=== PATIENT | male | born 1965 | race Caucasian/White ===

== ENCOUNTER 2017-11-09 16:17 | Emergency (ER) | payer OTHER | END 2017-11-09 18:11 | disposition home or self-care (01) | LOC: E/R 18:11 → FTE 16:17 | DX: L02.414 Cutaneous abscess of left upper limb (principal); L02.413 Cutaneous abscess of right upper limb | CPT/HCPCS: 99284; Z7502 ==

== ENCOUNTER 2019-05-02 11:59 | Observation (INO) | payer OTHER ==
[2019-05-02 13:52] LABS: ABNORMAL IP MESSAGE 1; HEMATOCRIT 44.1 % (42.0-52.0); HEMOGLOBIN 14.6 g/dl (14.0-18.0); MEAN CORPUSCULAR HEMOGLOBIN 29.2 pg (29.0-33.0); MEAN CORPUSCULAR HGB CONC 33.1 g/dl (32.0-37.0); MEAN CORPUSCULAR VOLUME 88.2 fl (82.0-101.0); MEAN PLATELET VOLUME 12.2 fl (7.4-10.4); PLATELET COUNT 254 10^3/UL (140-415); POSITIVE DIFF @See below; RED CELL DISTRIBUTION WIDTH 13.3 % (11.5-14.5)
[2019-05-02 13:52] LABS: WHITE BLOOD COUNT 31.7 10^3/ul (4.8-10.8)
[2019-05-02 13:53] LABS: ADD MAN DIFF? YES; PATH REVIEW? YES
[2019-05-02] MEDS: VANCOMYCIN 1 GM (PMX) 250 ML IVPB (14:01)
[2019-05-02 14:09] LABS: ALANINE AMINOTRANSFERASE 23 IU/L (13-69); ALBUMIN/GLOBULIN RATIO 1.21; ALKALINE PHOSPHATASE 91 IU/L (42-121); ANION GAP 10 (5-13); ASPARTATE AMINO TRANSFERASE 21 IU/L (15-46); BILIRUBIN,INDIRECT 0.5 mg/dl (0-1.1); BILIRUBIN,TOTAL 0.5 mg/dl (0.2-1.3); BLOOD UREA NITROGEN 21 mg/dl (7-20); CALCIUM 9.3 mg/dl (8.4-10.2); CARBON DIOXIDE 28 mmol/L (21-31); CHLORIDE 101 mmol/L (97-110); CREATININE 1.22 mg/dl (0.61-1.24); Estimated GFR > 60 mL/min (>60); GLUCOSE 121 mg/dl (70-220); POTASSIUM 3.6 mmol/L (3.5-5.1); SODIUM 139 mmol/L (135-144); TOTAL PROTEIN 7.3 g/dl (6.1-8.1)
[2019-05-02 14:26] LABS: ANISOCYTOSIS 1+ (0-0); BAND NEUTROPHILS #M 4.1 10^3/ul (0.0-0.6); BAND NEUTROPHILS % (M) 13 % (0-4); LYMPHOCYTES #M 0.3 10^3/ul (0.8-2.9); LYMPHOCYTES % (M) 1 % (15-51); MONOCYTE #M 1.9 10^3/ul (0.3-0.9); MONOCYTES % (M) 6 % (0-11); PLATELET ESTIMATE NORMAL; SEG NEUT #M 26.7 10^3/ul (1.6-7.5); SEGMENTED NEUTROPHILS (M) % 80 % (39-77)
[2019-05-02] MEDS ORDERED: ONDANSETRON 4 MG INJ IV (15:30)
[2019-05-02] MEDS: LIDOCAINE 1% (MPF) 5 ML VIAL SC (15:30)
[2019-05-02] MEDS ORDERED: VANCOMYCIN IV PER PHARMACY XX (15:30)
[2019-05-02] MEDS ORDERED: ZOLPIDEM 5 MG TAB PO (15:30)
[2019-05-02] MEDS ORDERED: ACETAMINOPHEN 325 MG TAB PO (15:30)
[2019-05-02] MEDS: ENOXAPARIN 40 MG/0.4 ML SYG SC (17:57)
[2019-05-02] MEDS: VANCOMYCIN 750 MG (PMX) 250 ML IVPB (17:57)
[2019-05-02] MEDS: ACETAMINOPHEN 500 MG TAB PO (17:58)
[2019-05-03] MEDS ORDERED: VANCOMYCIN 1 GM 250 ML IVPB (06:00)
== END 2019-05-02 21:30 | disposition left against medical advice (07) ==
LOC: E/R 11:59 → PP2 15:11
DX: L03.115 Cellulitis of right lower limb (principal); D72.829 Elevated white blood cell count, unspecified; I25.10 Atherosclerotic heart disease of native coronary artery without angina pectoris; F19.10 Other psychoactive substance abuse, uncomplicated; I25.2 Old myocardial infarction; F17.210 Nicotine dependence, cigarettes, uncomplicated; Z53.21 Procedure and treatment not carried out due to patient leaving prior to being seen by health care provider
CPT/HCPCS: 71045; 80053; 83605; 85025; 87040-91; 96374; 99285-25; G0378